=== PATIENT | male | born 1995 | race Caucasian/White ===

== ENCOUNTER → 2017-04-29 | Outpatient (CLI) | payer OTHER ==
--- NOTE | 2017-04-29 12:33 | NUR ---
Eval 2 Hr/Client was referred salvatore for an eval as a referral from his po.
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
== END | disposition home or self-care (01) ==
LOC: ADTC.GI 08:53
DX: F12.20 Cannabis dependence, uncomplicated (principal); F15.20 Other stimulant dependence, uncomplicated; Z55.9 Problems related to education and literacy, unspecified; Z56.0 Unemployment, unspecified; Z59.6 Low income; Z65.3 Problems related to other legal circumstances; Z72.0 Tobacco use